=== PATIENT | female | born 1990 | race Caucasian/White ===

== ENCOUNTER 2024-04-02 12:06 | Emergency (ER) | payer OTHER ==
[~2024-04-02] VITALS: Ht 157.5 cm; Wt 108.1 kg
[2024-04-02] MEDS ORDERED: CEPH500T PO (12:45)
[2024-04-02] MEDS ORDERED: IBUP-1455 PO (12:45)
--- NOTE | 2024-04-02 12:45 | ED.PDOC ---
History of Present Illness(SKN HPI Comments 33 year old female w/ hx of gastritis presents for insect bite to the left lateral thigh and left hip. Onset: 3 days ago Unsure how and when incident occurred Therapies tried: none Denies f/c/n/v/d Denies drainage from sites Chief Complaint: Insect Bite Time Seen by MD: 12:32 History of Present Illness: Nurses Notes, Medications, Allergies Home Meds Active Scripts Ibuprofen Micronized (Ibuprofen) 800 Mg Tab, 800 MG PO TID for 10 Days, #30 TAB 0 Refills Prov:KIRILL BETTS SENIOR QUALITY ASSURANCE SPECIALIST 04/02/24 Cephalexin Monohydrate (Cephalexin) 500 Mg Tab, 1 TAB PO QID for 7 Days, #28 TAB 0 Refills Prov:KIRILL BETTS SENIOR QUALITY ASSURANCE SPECIALIST 04/02/24 Information Source: Patient Past Medical History PAST MEDICAL HISTORY: Denies Surgical History: Denies all surgeries MASON APPRENTICE History: No Pertinent MASON APPRENTICE History Family History Family History: Reviewed,noncontributory to illness Social History Smoker: Non-Smoker Alcohol: Denies ETOH Use Drugs: Denies Drug Use All Other Systems: Reviewed and Negative (Per HPI) Physical Exam General Appearance: No Apparent Distress, Normal HEENT: Normal ENT Inspection, Pharynx Normal, TMs Normal Neck: Full Range of Motion, Non-Tender, Normal, Normal Inspection Respiratory: Chest Non-Tender, Lungs Clear, No Accessory Muscle Use, No Respiratory Distress, Normal Breath Sounds Cardiovascular: No Edema, No JVD, No Murmur, No Gallop, Normal Peripheral Pulses, Regular Rate/Rhythm Breast Exam: Deferred Gastrointestinal: No Organomegaly, Non Tender, No Pulsatile Mass, Normal Bowel Sounds, Soft Genitalia: Deferred Pelvic: Deferred Rectal: Deferred Extremities: No calf tenderness, Normal capillary refill, Normal inspection, Normal range of motion, Non-tender, No pedal edema Musculoskeletal : Apperance: Normal Neurologic: Alert, kiln burner helper II-XII nml as Tested, No Motor Deficits, Normal Affect, Normal Mood, No Sensory Deficits Cerebellar Function: Normal Reflexes: Normal Skin: Dry, Normal Color, Warm Lymphatic: No Adenopathy Was a procedure done? Was a procedure done?: No (Per) Images 1 - 2 cm erythematous papule. Non fluctuance. No crepitus. TTP. No open wounds. 2 - 3 cm erythematous papule. Non fluctuance. No crepitus. TTP. No open wounds. Differential Diagnosis (INTG) Differential Diagnosis: Cellulitis, Hematoma X-Ray, Labs, Meds, VS Vital Signs Date Time Temp Pulse Resp B/P (MAP) Pulse Ox O2 Delivery O2 Flow Rate FiO2 04/02/24 13:12 79 18 96 Room Air* 0 21 04/02/24 13:12 98.5 79 18 105/52 (69) 96 98.5 04/02/24 12:41 97.2 98 16 116/76 (89) 97 X-Ray, Labs, Meds, VS Comment Empiric treatment Area has been marked No signs of severe infection (hemodynamically instability (endorgan damage or extensive local progression) will manage with outpatient antibiotics Wound check in 24-48 hours Patient is stable for discharge at this time. External notes reviewed. Test results and diagnostic imaging interpreted. All diagnostic findings, discharge care, education and instructions provided Follow-up with PCP in 2 to 3 days Patient verbalized understanding and agreed to treatment plan Vital signs stable, afebrile, no acute distress noted Patient ambulatory with strong steady gait Advised to return precautions for any new or worsening symptoms, return to ER immediately for re-evaluation Patient is aware that the purpose of this visit was for an acute medical emergency requiring emergent stabilization. Chronic conditions, including malignancies have not been ruled out. Patient is instructed to follow up with PCP as directed and discharge instructions for continued care and workup. If unable to arrange follow-up, patient is to return to the emergency department for reassessment. Patient (parent or legal guardian if applicable) was given verbal and written discharge instructions and acknowledges understanding. Time of 1ST Reevaluation: 12:43 Reevaluation 1ST: Improved Patient Education/Counseling: Diagnosis, Treatment Family Education/Counseling: Diagnosis, Treatment Departure 1 Departure Time of Disposition: 12:43 Impression: Primary Impression: Insect bite Qualified Codes: S30.861A - Insect bite (nonvenomous) of abdominal wall, initial encounter; W57.XXXA - Bitten or stung by nonvenomous insect and other nonvenomous arthropods, initial encounter Disposition: HOME / SELF CARE / HOMELESS Condition: Stable e-Prescriptions Ibuprofen Micronized (Ibuprofen) 800 Mg Tab 800 MG PO TID for 10 Days, #30 TAB 0 Refills Prov: KIRILL BETTS NP 04/02/24 Cephalexin Monohydrate (Cephalexin) 500 Mg Tab 1 TAB PO QID for 7 Days, #28 TAB 0 Refills Prov: KIRILL BETTS NP 04/02/24 Critical Care Note Critical Care Time?: No Stability Stability form required: No Heart Score Heart Score: Heart Score Response (Comments) Value History N/A 0 EKG N/A 0 Age N/A 0 Risk Factors N/A 0 Troponin N/A 0 Total 0 KIRILL BETTS NP Apr 02, 2024 12:45
[2024-04-02] MEDS: cefTRIAXone SOD 1,000 MG VL IM ONE (13:11)
[2024-04-02 13:12] VITALS: BP 105/52; PULSE 79; RESP 18; TEMP 98.5; O2SAT 96
[2024-04-02] MEDS: KETOROLAC TROMETH 30 MG/ML 1ML VIAL IM ONE (13:12)
== END 2024-04-02 14:12 | disposition home or self-care (01) ==
LOC: ER 12:06
DX: S70.362A Insect bite (nonvenomous), left thigh, initial encounter (principal); S70.262A Insect bite (nonvenomous), left hip, initial encounter; Z79.1 Long term (current) use of non-steroidal anti-inflammatories (NSAID); Z79.899 Other long term (current) drug therapy; W57.XXXA Bitten or stung by nonvenomous insect and other nonvenomous arthropods, initial encounter; Y93.89 Activity, other specified; Y92.89 Other specified places as the place of occurrence of the external cause; Y99.8 Other external cause status
CPT/HCPCS: 96372; 99284; J0696; J1885

== ENCOUNTER 2024-06-19 12:52 | Emergency (ER) | payer MEDICAID ==
[~2024-06-19] VITALS: Ht 157.5 cm; Wt 112.9 kg
[~2024-06-19 12:52] MED LIST: CEPH500T PO; IBUP-1455 PO
[2024-06-19 13:42] VITALS: BP 133/76; PULSE 94; RESP 20; TEMP 97.8; O2SAT 99
[2024-06-19] MEDS ORDERED: PSEU120T18 PO (15:27)
[2024-06-19] MEDS ORDERED: PROM1SOL4 PO (15:27)
[2024-06-19] MEDS ORDERED: OSEL75CA5 PO (15:27)
[2024-06-19] MEDS ORDERED: ACET500T58 PO (15:27)
--- NOTE | 2024-06-19 15:27 | ED.PDOC ---
History of Present Illness HPI Comments 33-year-old with no pertinent MHx presents with a chief complaint of URI symptoms for the last three days. Admits her roommate just tested positive for influenza A Currently complains of fevers cough fatigue headache nasal congestion and diarrhea Denies fevers chills night sweats unintentional weight loss Denies persistent chest pain, shortness of breath, leg swelling Denies history of asthma nor any breathing conditions Denies history of pneumonia Denies recent international travel Chief Complaint: Flu like Time Seen by MD: 13:26 Past Medical History PAST MEDICAL HISTORY: Denies Surgical History: Denies all surgeries FIRE OFFICER History: No Pertinent FIRE OFFICER History Family History Family History: Reviewed,noncontributory to illness Social History Smoker: Non-Smoker Alcohol: Denies ETOH Use Drugs: Denies Drug Use All Other Systems: Reviewed and Negative (Per HPI) Physical Exam General Appearance: No Apparent Distress, Normal HEENT: Normal ENT Inspection, Pharynx Normal, TMs Normal Neck: Full Range of Motion, Non-Tender, Normal, Normal Inspection Respiratory: Chest Non-Tender, Lungs Clear, No Accessory Muscle Use, No Respiratory Distress, Normal Breath Sounds Cardiovascular: No Edema, No JVD, No Murmur, No Gallop, Normal Peripheral Pulses, Regular Rate/Rhythm Breast Exam: Deferred Gastrointestinal: No Organomegaly, Non Tender, No Pulsatile Mass, Normal Bowel Sounds, Soft Genitalia: Deferred Pelvic: Deferred Rectal: Deferred Extremities: No calf tenderness, Normal capillary refill, Normal inspection, Normal range of motion, Non-tender, No pedal edema Musculoskeletal : Apperance: Normal Neurologic: Alert, No Motor Deficits, Normal Affect, Normal Mood, No Sensory Deficits Cerebellar Function: Normal Reflexes: Normal Skin: Dry, Normal Color, Warm Lymphatic: No Adenopathy Was a procedure done? Was a procedure done?: No Fever Differential Dx Differential Diagnosis: Influenza X-Ray, Labs, Meds, VS Vital Signs Date Time Temp Pulse Resp B/P (MAP) Pulse Ox O2 Delivery O2 Flow Rate FiO2 06/19/24 13:42 97.8 94 20 133/76 (95) 99 97.8 06/19/24 13:42 94 20 99 Room Air 06/19/24 13:05 20 99 Room Air 0 06/19/24 13:05 97.8 94 20 133/76 (95) 99 Time of 1ST Reevaluation: 15:26 Reevaluation 1ST: Improved Patient Education/Counseling: Diagnosis, Treatment Family Education/Counseling: Diagnosis, Treatment Departure 1 Departure Time of Disposition: 15:26 Impression: Primary Impression: Influenza A Disposition: HOME / SELF CARE / HOMELESS Condition: Stable e-Prescriptions Acetaminophen (Acetaminophen) 500 Mg Tab 500 MG PO Q6HP PRN for 10 Days, #40 TAB 0 Refills Prov: KIRILL BETTS NP 06/19/24 Pseudoephedrine-Guaifenesin (Mucinex D) 1 Tab Tab 1 TAB PO BID for 10 Days, #20 TAB 0 Refills Prov: KIRILL BETTS TECHNICAL SALES ENGINEER 06/19/24 Promethazine-Dm (Promethazine Dm 6.25-15 mg/5Ml) 1 Celia Celia 5 ML PO TID for 10 Days, #150 ML 0 Refills Prov: KIRILL BETTS TECHNICAL SALES ENGINEER 06/19/24 Oseltamivir Phosphate (Tamiflu) 75 Mg Cap 1 CAP PO BID for 5 Days, #10 CAP 0 Refills Prov: KIRILL BETTS TECHNICAL SALES ENGINEER 06/19/24 Critical Care Note Critical Care Time?: No Stability Stability form required: No Heart Score Heart Score: Heart Score Response (Comments) Value History N/A 0 EKG N/A 0 Age N/A 0 Risk Factors N/A 0 Troponin N/A 0 Total 0 KIRILL BETTS TECHNICAL SALES ENGINEER Jun 19, 2024 15:27
== END 2024-06-19 15:33 | disposition home or self-care (01) ==
LOC: ER 12:52
DX: J10.1 Influenza due to other identified influenza virus with other respiratory manifestations (principal); R50.9 Fever, unspecified; R51.9 Headache, unspecified; R19.7 Diarrhea, unspecified